=== PATIENT | female | born 1985 | race Caucasian/White ===

== ENCOUNTER 2017-06-09 08:24 | Emergency (ER) | payer OTHER ==
[~2017-06-09] VITALS: Ht 165.1 cm; Wt 90.5 kg
[~2017-06-09 08:24] MED LIST: ADVIL200 M1 PO; CLEOCIN300 MG PO; FLEXERIL10 MG PO; METHADONE 22 MG/1 ML PO; NOHOMEMEDS; PEN-VEE K,VEET500 MG PO; PERCOCET 5/31 TABLET PO; Percocet 5/325,Endoc PO; STOOL SOFTENERS PO; TORADOL10 MG PO; ULTRAM50 MG PO; VICODIN,LORT1 TABLET PO
[2017-06-09 10:33] VITALS: BP 128/74
== END 2017-06-09 10:34 | disposition home or self-care (01) ==
LOC: EME 08:24
DX: S20.212A Contusion of left front wall of thorax, initial encounter (principal); W50.0XXA Accidental hit or strike by another person, initial encounter; F17.200 Nicotine dependence, unspecified, uncomplicated
CPT/HCPCS: 71020; 99281; 99283